=== PATIENT | female | born 1975 | race Caucasian/White ===

== ENCOUNTER 2022-10-21 10:17 | Emergency (ER) | payer OTHER, SELFPAY ==
[2022-10-21 10:31] VITALS: BP 128/78; PULSE 66; RESP 18; TEMP 36.7; O2SAT 98; BMI 30.2
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
[2022-10-21 11:29] VITALS: BP 152/80; PULSE 67; RESP 20; TEMP 36.4; O2SAT 98
== END 2022-10-21 11:23 | disposition home or self-care (01) ==
LOC: ED 11:55
PROVIDERS: Emergency Provider Physician Assistant
DX: Z76.0 Encounter for issue of repeat prescription (principal); Z48.02 Encounter for removal of sutures; Z87.820 Personal history of traumatic brain injury
CPT/HCPCS: 99281; 99282